=== PATIENT | female | born 1940 | race Caucasian/White ===

== ENCOUNTER 2017-02-26 23:36 | Emergency (ER) | payer OTHER, MEDICAID ==
[~2017-02-26 23:36] MED LIST: ASPIR-LOW81 M1 PO; D3 VITAMIN400 IU/ML PO; LOP50 PO; LOT10 PO; LOTENSIN10 MG PO; METOPROLOL TART50 MG PO; NIFEDIPINE ER60 MG PO; OMEPRAZOLE DR20 M1 PO; OXCARBAZEPINE300 M1 PO; OYSCO 500 + D 51 TAB PO; PHEL PO; PREDNISONE20 MG PO; PRI20 PO; PRO30 PO; TRIAMCINOLONE AC0.13 TOP; ZOC20 PO
[2017-02-27 03:14] VITALS: BP 149/70
== END 2017-02-27 03:14 | disposition home or self-care (01) ==
LOC: ED 23:36
DX: G43.909 Migraine, unspecified, not intractable, without status migrainosus (principal); I10 Essential (primary) hypertension; E78.00 Pure hypercholesterolemia, unspecified
CPT/HCPCS: J1200; J2765; J7030; J7050